=== PATIENT | female | born 1975 | race Caucasian/White ===

== ENCOUNTER 2016-05-12 15:48 | Inpatient (IN) | payer BC ==
[~2016-05-12] VITALS: Ht 170.2 cm; Wt 73.6 kg
--- NOTE | ~2016-05-12 | CON ---
PATIENT'S NAME: PANDA PATRICIA [facility] AGE: 40 Y [address] ROOM: [address] [place], [place] [address] LOCATION: G3 ADMIT DATE: 05/12/2016 Consultation DISCHARGE DATE: FAMILY PHYSICIAN: Neeraj Hart ATTENDING PHYSICIAN: LANRE BUSTAMANTE DATE OF CONSULTATION: 05/14/2016 REFERRING PHYSICIAN: RADHA SNYDER MD INITIAL PSYCHIATRIC EVALUATION/CONSULTATION DATA: The patient was seen today on a one-to-one. The case was discussed with the nurse for vital signs and collateral information. The patient is a 40-year- old female. The case later on was also discussed with the treating physician, Dr. Ulrich and with the nurse practitioner. DIAGNOSES AT THE TIME OF EVALUATION: Borderline personality disorder (severe), history of bipolar disorder, and chronic opioid use. RECOMMENDATION: The patient right now is denying any issues with abuse. Nevertheless, I concur with Dr. Ulrich the need for starting tapering her off obvious is evident. Nevertheless, again the patient is not suicidal or homicidal, not psychotic, and does not need a different level of psychiatric care. The patient should only continue with psychotherapy upon discharge. HISTORY: This lady ended up in the hospital recently with nausea and vomiting. Mother stated that the patient has been abusing opiates chronically that the patient denies. Nevertheless, symptomatology seems to confirm that she is in some kind of opiate withdrawal, and because of that, a psychiatric consultation was requested. So, I came to [facility], reviewed the electronic records and the paper records, talked to the nurse for collateral information and with the patient on a one-to-one. The patient quite regretfully is bluntly denying any kind of abuse. She said that she is bipolar. She has been to Dr. Carter in [place]. Nevertheless, upon checking, the patient has never met criteria for major depressive episodes or hypomanic episodes or manic episodes. She has a very strong instability, which may confirm the diagnosis and with that also problems with relationships, self- esteem, impulsivity, anger, and emptiness. The patient has never been psychotic, never manic or hypomanic. No issues with obsession and compulsion, eating disorder, post traumatization, or gambling. PATIENT'S NAME: PANDA PATRICIA [facility] AGE: 40 Y [address] ROOM: [address] [place], [place] [address] LOCATION: [facility] ADMIT DATE: 05/12/2016 Consultation DISCHARGE DATE: FAMILY PHYSICIAN: , New ATTENDING PHYSICIAN: LANRE BUSTAMANTE SUBSTANCE USE HISTORY: She is a smoker, but not a heavy drinker. PAST PSYCHIATRIC HISTORY: The patient has been hospitalized once only for psychiatric problems because of depression but not suicidality. MEDICAL HISTORY: Per Dr. Bustamante's H and P. PERSONAL HISTORY: She is adopted, living with her children; now in [place], [place]. HISTORY OF ABUSE: Denies having been abused physically, sexually, or psychologically. FAMILY HISTORY: Unknown. MENTAL STATUS EXAMINATION: lady, cooperative, good hygiene, good eye contact. No psychomotor agitation or retardation. Her speech is normal in volume, tone, and production. Mood is described as "worried about my health," assessed as labile. Affect is labile with appropriate thought content. Thought contents are relevant by the patient denying current suicidal or homicidal ideation, denying any auditory or visual hallucination. No delusional thoughts. Thought process is coherent, congruent. No loosening of association. Insight and judgment seem to be formally intact, tainted by [place] II. STRENGTH: Intelligence. BARRIERS: Coping skills, tolerance and dependence on opioids. ELIE CEDILLO MD HG/modl /[id number] d: 05/15/16 0853 t: 05/15/16 1041, CONSULTATION REPORT
--- NOTE | ~2016-05-12 | DS ---
PATIENT'S NAME: PANDA PATRICIA [facility] AGE: 40 Y [address] ROOM: [address] [place], [place] [address] LOCATION: [facility] ADMIT DATE: 05/12/2016 Discharge Summary DISCHARGE DATE: FAMILY PHYSICIAN: Neeraj Hart ATTENDING PHYSICIAN: Claude Harris The attending doctor for today is Dr. Vargas. CHIEF COMPLAINT: Abdominal pain, nausea, and vomiting. HOSPITAL COURSE: This patient was admitted on the , complaining of abdominal pain, nausea, and vomiting. This has been going on since May 10, 2016. Symptoms gotten worse since the , and the patient came to the hospital seeking medical help. The patient has a history of neck pain and upper and lower back pain. The patient was not satisfied with the pain management, and Pain Management, Dr. Stanford, consultation was placed. Upon discussions with the pain management doctor, he advised to withdraw/discontinue all the narcotic medications. The patient was not happy with this in the beginning and seems to me that she was okay today. Nausea and vomiting got controlled. GI consult was placed. The patient received upper GI endoscopy and lower GI endoscopy. The EGD showed mild gastritis, and biopsy was taken. The colonoscopy was normal apart from 2 small polyps which were removed. The patient was started on antibiotic on arrival, and recently GI consult, antibiotics will be stopped. Psychiatric consultation was placed. The doctor came to evaluate the patient, but the patient refused to get the evaluation. The patient seems very cooperative today, and she is not anxious. She does not look upset, and she is excited to go home. She is going to follow up with her family doctor next week. PHYSICAL EXAMINATION ON DISCHARGE: VITAL SIGNS: Temperature is 98.4, pulse is 99, respiratory rate of 14, blood pressure of 123/79, and oxygen saturation 100% on room air. GENERAL APPEARANCE: The patient is alert, awake, and oriented x3. RESPIRATORY: Clear to auscultation bilaterally. CARDIOVASCULAR: S1 plus S2 plus 0. GASTROINTESTINAL. Nontender and nondistended. Positive bowel sounds. NEUROLOGIC: Grossly normal. SKIN: No abnormality detected. LABORATORY DATA ON DISCHARGE: Chemistry: Sodium 140, potassium 3.4, chloride 106, bicarbonate 23, BUN 5, and creatinine 0.6. MEDICATIONS ON DISCHARGE: 1. Lamictal 200 mg p.o. daily. 2. Gabapentin 600 mg p.o. daily p.r.n. PATIENT'S NAME: PANDA PATRICIA [facility] AGE: 40 Y [address] ROOM: [address] [address] LOCATION: [facility] ADMIT DATE: 05/12/2016 Discharge Summary DISCHARGE DATE: FAMILY PHYSICIAN: Physician, New ATTENDING PHYSICIAN: Claude Harris CONDITION ON DISCHARGE: Stable. DISCHARGE DESTINATION: Home. ACTIVITY: Advance as tolerated. DIET: Regular diet. FOLLOWUP: 1. Please follow up with your primary care within one week. 2. Follow up with Pain Management within one week. RESTRICTIONS: There are no restrictions. MD ZAK GRIFFIN/modl /[id number] d: 05/16/16 1624 t: 06/29/16 0838, DISCHARGE SUMMARY
--- NOTE | ~2016-05-12 | HP ---
PATIENT'S NAME: PANDA PATRICIA [facility] AGE: 40 Y [address] ROOM: [address] [place], [place] [address] LOCATION: [facility] ADMIT DATE: 05/12/2016 History & Physical DISCHARGE DATE: FAMILY PHYSICIAN: ATTENDING PHYSICIAN: LANRE BUSTAMANTE DATE OF SERVICE: 05/12/2016 CHIEF COMPLAINT: Nausea and nonbloody vomiting and nonbloody diarrhea and diffuse abdominal pain for the last 2 days. HISTORY OF PRESENT ILLNESS: This is a 40-year-old female who states that last Wednesday on May 10, 2016, the patient started feeling this nausea and nonbloody vomiting and nonbloody diarrhea and diffuse abdominal pain, but the symptoms did get better yesterday May 11, 2016. Today on May 12, 2016, these symptoms came back again with nausea and nonbloody vomiting and nonbloody diarrhea. She states she has had roughly 20 episodes of nonbloody vomiting today, roughly 15 episodes of nonbloody diarrhea today associated with diffuse abdominal pain, and some chills today. She chronically suffers from posterior neck and upper back and lower back pain. She states she has some severe degenerative joint disease and is scheduled to have surgery in [place] in 2 to 3 months. She chronically takes a fentanyl patch 75 mcg one patch per day. Last dose was on Tuesday, May 10, 2016, and she also takes Percocet 10/325 mg 1 to 4 tablets a day, last dose was 2 days ago, also on Tuesday May 10, 2016. She stopped taking the p.o. Percocet 2 days ago and stopped using the fentanyl patch because she ran out of the fentanyl patch and she did not feel well because of the nausea and vomiting. She states that she has never felt like this before. She chronically used the fentanyl patch and Percocet for a long time, therefore, she is narcotic dependent. REVIEW OF SYSTEMS: As mentioned in history of present illness. All other systems reviewed and negative except those mentioned in history of present illness. PAST MEDICAL HISTORY: 1. Bipolar disorder. 2. Anxiety disorder. 3. Chronic posterior neck and upper and lower back pain secondary to degenerative joint disease. 4. Chronically narcotic dependent at home with fentanyl patch and also with the Percocet. The patient denies any other past medical history. PATIENT'S NAME: PANDA PATRICIA [facility] AGE: 40 Y [address] ROOM: [address] [place], [place] [address] LOCATION: [facility] ADMIT DATE: 05/12/2016 History & Physical DISCHARGE DATE: FAMILY PHYSICIAN: ATTENDING PHYSICIAN: LANRE BUSTAMANTE ALLERGIES: NO KNOWN DRUG ALLERGIES ACCORDING TO THE PATIENT. HOME MEDICATIONS: Currently is being reconciled with the patient's pharmacy. SOCIAL HISTORY: The patient is an active cigarette smoker about half pack per day for 20 years and she denies any illegal drugs or any alcohol use disorder or problem. She drinks alcohol socially. She denies any alcohol withdrawal or alcohol withdrawal seizure or delirium tremens in the past. FAMILY HISTORY: The patient is adopted, therefore, she has no idea about her biological parents past medical history. PAST SURGICAL HISTORY: Status post cholecystectomy and status post right foot surgery in the past. PHYSICAL EXAMINATION: VITAL SIGNS: At the time of my dictation, temperature 98.2, heart rate 71, respiration 14, blood pressure 142/73, saturation 99% on room air. Pain 4 to 6/10 diffusely in the abdomen. GENERAL APPEARANCE: The patient is alert and in discomfort and in moderate distress, moving around on the bed, complaining of diffuse abdominal pain and nausea. The patient does not look septic. HEENT: Pupils equally round and reactive to light. Extraocular muscles intact. There is no obvious finding of mydriasis. No horizontal and no vertical nystagmus. Anicteric sclerae. Nasal turbinates are normal bilaterally. Moist oral mucosa. No oral thrush. NECK: No JVD. No neck stiffness. No cervical lymphadenopathy. CARDIOVASCULAR: Regular rate and rhythm. Normal S1 and S2. No murmur, no rubs, no gallops. RESPIRATORY: Clear. Chest wall nontender to palpation. ABDOMEN: Soft, diffusely tender to palpation, worse in the right upper quadrant and left upper quadrant and epigastric area. No rebound tenderness. No abdominal rigidity. Bowel sounds are present. Could not appreciate any mass. No ascites. Nondistended. Soft. Bowel sounds present. EXTREMITIES: No edema in upper or lower extremities. MUSCULOSKELETAL: She has some midline tenderness to palpation in the lower back in the lumbar area which she states is chronic and has now worsened. Range of motion intact in all 4 extremities. SKIN: No ulcer, no rash, no cyanosis. NEUROLOGIC: Grossly nonfocal. No muscle weakness. No sensation loss. No PATIENT'S NAME: PANDA PATRICIA [facility] AGE: 40 Y [address] ROOM: [address] [address] LOCATION: [facility] ADMIT DATE: 05/12/2016 History & Physical DISCHARGE DATE: FAMILY PHYSICIAN: ATTENDING PHYSICIAN: LANRE BUSTAMANTE anesthesia. LABORATORY DATA: White blood cell 14.5, hemoglobin 11.6, hematocrit 33.8, MCV 86.2, platelet 431. Glucose 152, BUN 10, creatinine 0.9, sodium 143, potassium 3.1, chloride 108, CO2 of 27, calcium 8.5, total protein 6.8, albumin 3.7, AST 14, ALT 17, alkaline phosphatase 78, total bilirubin 0.3, anion gap 11.1, globulin 3.1. GFR more than 60. Amylase 103, lipase 70. Urinary test negative. IMAGING STUDIES: CT of abdomen and pelvis with contrast on admission showed segmental wall thickening and luminal narrowing at the colon involving predominantly the ascending colon, splenic flexure, and transverse colon. The appearance could reflect changes of colitis or infectious or inflammatory origin. No free air. No finding of bowel obstruction. No appendicitis. Surgically absent gallbladder. EKG on admission showed sinus rhythm, heart rate at 64 beats per minute with a first-degree AV block, [place] of 216 milliseconds, QRS of 102 millisecond, QTc 433 milliseconds. No acute ischemic findings. ASSESSMENT AND PLAN: 1. Intractable nausea and nonbloody vomiting and nonbloody diarrhea with diffuse abdominal pain likely secondary to infectious/ischemic/inflammatory colitis and possibly opioid withdrawal: For the colitis, I will treat her with iv ceftriaxone and iv flagyl, npo, iv fluids for hydration, and pain control with IV fentanyl p.r.n. and IV Dilaudid p.r.n. and GI consult in the morning. For the possible opiate withdrawal, she is already getting IV fentanyl p.r.n. and IV Dilaudid p.r.n. She does not want any fentanyl patch because they fall off very easily on her. Nausea control with IV Zofran p.r.n. Her diagnosis is probably secondary to infectious colitis due to the finding on the CAT scan as well as possible opioid withdrawal since her symptoms started 2 days ago when she suddenly stopped using the fentanyl patch and also with the Percocet. Further plan depends on clinical course. The left splenic flexure area is involved, so ischemic colitis would still be in the differential but typically it also has bloody diarrhea and some history of coronary artery disease. Inflammatory bowel disease such as UC or CD but location and distribution on her CAT scan is not the typical areas either. Will place GI consult in AM. 2. Regarding her hypokalemia: This is from the GI loss from the nausea, vomiting, and diarrhea. I will replace her with IV potassium given that she cannot take p.o. She will be getting IV fluids for hydration as well. 3. Regarding her anxiety disorder: I will give her some Ativan IV p.r.n. to control her anxiety. 4. Regarding her chronic upper and lower back pain and chronic neck pain from her degenerative joint disease: Pain control with IV fentanyl PATIENT'S NAME: PANDA PATRICIA [facility] AGE: 40 Y [address] ROOM: [place] [address] LOCATION: [facility] ADMIT DATE: 05/12/2016 History & Physical DISCHARGE DATE: FAMILY PHYSICIAN: ATTENDING PHYSICIAN: LANRE BUSTAMANTE p.r.n. and IV Dilaudid p.r.n. The patient will be having a surgery in [place] in 3 months according to the patient to fix her DJD. Currently, there is no finding to suggest spinal cord compression. Therefore, MRI of the spinal cord will not be performed at this time unless her clinical condition changes. 5. Deep vein thrombosis prophylaxis: She will be on subcu Lovenox. 6. Active cigarette user: She will be getting nicotine patch 21 g transdermal patch daily. 7. Further plan depends on clinical course. Time spent on the day of admission 40 minutes including chart review, interviewing and examining the patient, addressing all the questions and concerns the patient had, and going over the plan of care with the nurse, patient, and the patient's friend at the bedside. LANRE BUSTAMANTE MD CC/modl /[id number] D: [id number] T: [id number] HISTORY & PHYSICAL
--- NOTE | ~2016-05-12 | CON ---
PATIENT'S NAME: PANDA PATRICIA [facility] AGE: 40 Y [address] ROOM: [place] [address] LOCATION: G3N ADMIT DATE: 05/12/2016 Consultation DISCHARGE DATE: FAMILY PHYSICIAN: Neeraj Hart ATTENDING PHYSICIAN: LANRE BUSTAMANTE DATE OF CONSULTATION: 05/13/2016 REFERRING PHYSICIAN: RADHA SNYDER MD HOSPITAL CONSULTATION REFERRING PROVIDER: Lexie Ulrich MD REASON FOR CONSULTATION: Abdominal pain, nonbloody diarrhea, and emesis. HISTORY OF PRESENT ILLNESS: This is a 40-year-old female who states on 05/10/2016, she began feeling nauseated with nonbloody vomiting and diarrhea. At this time, she complained of diffuse abdominal pain though the symptoms did improve the following day. Her symptoms returned on May 12 on the day of admission with continued nausea, vomiting, and nonbloody diarrhea in upwards of 20 episodes. She does chronically suffer from posterior neck, upper back and lower back pain, and has currently been dependent on narcotics, specifically Percocet and fentanyl patch at home. The patient retreated to the emergency room and was evaluated at that time. A CT abdomen and pelvis was completed on 05/12/2016 that did show segmental wall thickening, luminal narrowing at the colon involving predominantly the ascending colon, splenic flexure, and transverse colon. Reflecting changes of colitis of infectious versus inflammatory in origin. The patient was admitted and placed on IV Flagyl as well as ceftriaxone. The patient denies any chest pain, chest pressure, shortness of breath, fever, chills, night sweats, or weight loss. She does state that her abdominal pain is diffusely throughout with more specific intensity in her lower abdomen. The patient denies any blood in her stool or hematemesis. PAST MEDICAL HISTORY: 1. Bipolar. 2. Anxiety. 3. Chronic posterior neck, upper and lower back pain secondary to degenerative joint disease, chronically narcotic dependent at home with fentanyl patch and Percocet. PAST SURGICAL HISTORY: PATIENT'S NAME: PANDA PATRICIA [facility] AGE: 40 Y [address] ROOM: [place] [address] LOCATION: N ADMIT DATE: 05/12/2016 Consultation DISCHARGE DATE: FAMILY PHYSICIAN: Physician New ATTENDING PHYSICIAN: LANRE BUSTAMANTE 1. Post cholecystectomy. 2. Right foot surgery in the past. SOCIAL HISTORY: The patient is an active cigarette smoker about a half pack per day. She denies any illicit drug use or alcohol use disorder. She does admit to drinking alcohol on a social basis. FAMILY HISTORY: The patient is adopted with no known biological medical history. ALLERGIES: NO KNOWN MEDICATION ALLERGIES. CURRENT MEDICATIONS: Please refer to the medication administration record. REVIEW OF SYSTEMS: A 10-point review of systems was completed. All were negative except for those identified in the history of present illness. PHYSICAL EXAMINATION: GENERAL: A pleasant, 40-year-old female, who appears to be in mild acute distress. VITAL SIGNS: Temperature 98.6, pulse is 51, respirations of 18, blood pressure 114/59, and oxygen saturations 100% on room air. SKIN: [place], warm, and dry. No jaundice. HEENT: Head is normocephalic and atraumatic. Pupils are equal, round, and reactive to light. Sclerae are clear. Nonicteric. Oral mucosa is pink and moist. No thyromegaly. NECK: Soft and supple. CARDIOVASCULAR: Regular. Normal S1 and S2. RESPIRATORY: Respirations even and unlabored. LUNGS: Clear to auscultation. ABDOMEN: Soft, round, and tender throughout with light palpation. Bowel sounds positive x4 quadrants. MUSCULOSKELETAL: No muscle weakness or atrophy. EXTREMITIES: No clubbing, cyanosis, or edema. NEUROLOGIC: Grossly nonfocal. LABORATORY DATA AND IMAGING STUDIES: Labs and Diagnostics: White blood cell count of 14.5, hemoglobin 10.1, hematocrit of 30.0, and platelets of 355,000. Chemistry panel includes a glucose of 101, BUN of 9, creatinine 0.8, sodium 146, potassium of 3.7, chloride of 112, and CO2 of 25. LFTs on admission were all within normal PATIENT'S NAME: PANDA PATRICIA [facility] AGE: 40 Y [address] ROOM: [address] [address] LOCATION: [facility] ADMIT DATE: 05/12/2016 Consultation DISCHARGE DATE: FAMILY PHYSICIAN: Neeraj Hart ATTENDING PHYSICIAN: LANRE BUSTAMANTE limits. ESR is 8. A CT abdomen and pelvis was also completed, showing segmental wall thickening, luminal narrowing of the colon involving predominantly the ascending colon at the splenic flexure, and transverse colon, reflecting changes of colitis of infectious versus inflammatory in origin. Surgically absent gallbladder. No free air with no findings of bowel obstruction or appendicitis. ASSESSMENT AND PLAN: Again this is a pleasant, 40-year-old female with acute colitis. The patient on examination is quite tender throughout her abdomen. The patient will require an upper endoscopy and colonoscopy for further evaluation, once the acute pain has resolved. Recommendations to continue antibiotics as well as a PPI coverage until further resolution of the patient's abdominal pain. The patient will be placed on a clear liquid diet as tolerated with monitoring of labs including a CBC, CRP, and lipase. Further recommendations to be given over the patient's course of her hospitalization. Thank you for this consult and allowing us to participate in the care of this patient. We will continue to monitor, evaluate, and treat as appropriate. ARVIN FAN APRN FOR RADHA SNYDER MD MMF/modl /[id number] d: 05/14/16 1118 t: 05/20/16 0952, CONSULTATION REPORT
--- NOTE | ~2016-05-12 | DS ---
PATIENT'S NAME: PANDA PATRICIA [facility] AGE: 40 Y [address] ROOM: [address] [place], [place] [address] LOCATION: [facility] ADMIT DATE: 05/12/2016 Discharge Summary DISCHARGE DATE: FAMILY PHYSICIAN: Neeraj Hart ATTENDING PHYSICIAN: Claude Harris The attending doctor for today is Dr. Vargas. CHIEF COMPLAINT: Abdominal pain, nausea, and vomiting. HOSPITAL COURSE: This patient was admitted on the , complaining of abdominal pain, nausea, and vomiting. This has been going on since May 10, 2016. Symptoms gotten worse since the , and the patient came to the hospital seeking medical help. The patient has a history of neck pain and upper and lower back pain. The patient was not satisfied with the pain management, and Pain Management, Dr. Stanford, consultation was placed. Upon discussions with the pain management doctor, he advised to withdraw/discontinue all the narcotic medications. The patient was not happy with this in the beginning and seems to me that she was okay today. Nausea and vomiting got controlled. GI consult was placed. The patient received upper GI endoscopy and lower GI endoscopy. The EGD showed mild gastritis, and biopsy was taken. The colonoscopy was normal apart from 2 small polyps which were removed. The patient was started on antibiotic on arrival, and recently GI consult, antibiotics will be stopped. Psychiatric consultation was placed. The doctor came to evaluate the patient, but the patient refused to get the evaluation. The patient seems very cooperative today, and she is not anxious. She does not look upset, and she is excited to go home. She is going to follow up with her family doctor next week. PHYSICAL EXAMINATION ON DISCHARGE: VITAL SIGNS: Temperature is 98.4, pulse is 99, respiratory rate of 14, blood pressure of 123/79, and oxygen saturation 100% on room air. GENERAL APPEARANCE: The patient is alert, awake, and oriented x3. RESPIRATORY: Clear to auscultation bilaterally. CARDIOVASCULAR: S1 plus S2 plus 0. GASTROINTESTINAL. Nontender and nondistended. Positive bowel sounds. NEUROLOGIC: Grossly normal. SKIN: No abnormality detected. LABORATORY DATA ON DISCHARGE: Chemistry: Sodium 140, potassium 3.4, chloride 106, bicarbonate 23, BUN 5, and creatinine 0.6. MEDICATIONS ON DISCHARGE: 1. Lamictal 200 mg p.o. daily. 2. Gabapentin 600 mg p.o. daily p.r.n. PATIENT'S NAME: PANDA PATRICIA [facility] AGE: 40 Y [address] ROOM: [address] [address] LOCATION: [facility] ADMIT DATE: 05/12/2016 Discharge Summary DISCHARGE DATE: FAMILY PHYSICIAN: Physician, New ATTENDING PHYSICIAN: Claude Harris CONDITION ON DISCHARGE: Stable. DISCHARGE DESTINATION: Home. ACTIVITY: Advance as tolerated. DIET: Regular diet. FOLLOWUP: 1. Please follow up with your primary care within one week. 2. Follow up with Pain Management within one week. RESTRICTIONS: There are no restrictions. MD ZAK GRIFFIN/modl /[id number] d: t: 05/16/16 1631, DISCHARGE SUMMARY
--- NOTE | ~2016-05-12 | ER ---
PATIENT'S NAME: PANDA PATRICIA [facility] AGE: 40 Y [address] ROOM: [place] [address] LOCATION: [facility] ADMIT DATE: 05/12/2016 ER/Outpatient Report DISCHARGE DATE: FAMILY PHYSICIAN: ATTENDING PHYSICIAN: LANRE BUSTAMANTE Time of Arrival: 1548 hours. Time of Evaluation: 1548 hours. CHIEF COMPLAINT: Nausea and vomiting. HISTORY OF PRESENT ILLNESS: This is a 40-year-old female, who presents to the ER via [facility], who states that she is sick from eating baloney. The patient states that she ate this baloney 2 nights ago and had an episode of vomiting and diarrhea from it. She states that she did not associate it with the baloney because she thought she has just had got gastrointestinal flu. The patient states that she did eat the baloney again at 11 o'clock this morning and approximately an hour later started vomiting again. The patient states she has not been running any fevers. She states she has generalized pain throughout her abdomen and has burning up into her chest. She states that she has had no recent antibiotic therapy. No recent travel outside of the [facility]. She states that she is here from [facility]. Upon her arrival, she did receive 4 mg of Zofran, and they started some IV fluids on her as well. ALLERGIES: NO KNOWN ALLERGIES. MEDICATIONS: Please see medication list in nurse's notes. PAST MEDICAL HISTORY: Bipolar, anxiety, fibromyalgia, chronic back pain. PAST SURGICAL HISTORY: Cholecystectomy, surgery on her right foot. SOCIAL HISTORY: Smokes half pack of cigarettes a day for the last 20 years. Drinks alcohol rarely. Denies any drug use. REVIEW OF SYSTEMS: A 10-point review of system was completed and was negative with the exception PATIENT'S NAME: PANDA PATRICIA [facility] AGE: 40 Y [address] ROOM: [place] [address] LOCATION: [facility] ADMIT DATE: 05/12/2016 ER/Outpatient Report DISCHARGE DATE: FAMILY PHYSICIAN: ATTENDING PHYSICIAN: LANRE BUSTAMANTE of those discussed in the HPI. PHYSICAL EXAMINATION: VITAL SIGNS: Height 5 feet 7 inches stated, weight 72.7 kg taken, blood pressure is 157/84, pulse 72, respirations 20, temperature 96.8 degrees tympanically, saturations 100% on room air. Crook Coma Score is 15. GENERAL: Alert, very anxious, 40-year-old, in moderate distress. The patient is screaming out in pain and dry heaving. HEENT: Head: Normocephalic. She does display moist mucous membranes. Eyes: Pupils are equal and reactive to light. NECK: Supple. No lymphadenopathy. LUNGS: Clear to auscultation bilaterally. No wheezes or crackles. Normal respiratory effort. HEART: Regular rate and rhythm. No lifts, thrills, or murmurs. ABDOMEN: She has generalized tenderness in all 4 quadrants. She has good bowel sounds throughout. EXTREMITIES: No clubbing or cyanosis. She does have full range of motion of all limbs. SKIN: Warm, dry, and intact. NEURO: Cranial nerves 2 through 12 grossly intact. Gait was not observed. LABORATORY DATA AND X-RAYS: CBC: White count is 14.5, hemoglobin is 11.6, platelets 431, ANC is 12.4. CMS: Potassium 3.1, glucose is 152, otherwise unremarkable. Amylase is 103, lipase is 70. H-pylori was negative. HCG was less than 1.0. EKG shows sinus rhythm. Does have some artifact on that EKG. CT scan was done with IV contrast. This shows some wall thickening of her colon in the ascending and transverse section of her colon, questioning infectious colitis. No obstruction was seen. IMPRESSION: 1. Nausea and vomiting. 2. Abdominal discomfort with CT findings of colitis. 3. Possible narcotic withdrawal. ASSESSMENT AND PLAN: The patient did have an IV established with IV fluids going when she arrived. We did repeat a second liter of fluids while she was here. After she arrived, she states that Zofran was not helping her. Therefore, we gave 50 mg of Phenergan IM and 1 mg of Ativan to help calm her down. She states that this is not helping her, and she states that her pain is worse, so we gave her fentanyl 25 mcg IV, and then a few minutes later gave her another dose of Zofran 4 mg IV. The patient continued to be in significant discomfort. I thought maybe I could relax her by using some Benadryl 50 mg IV. The patient still continues that nothing is helping her. So, I did have Dr. Jennifer go and PATIENT'S NAME: PANDA PATRICIA [facility] AGE: 40 Y [address] ROOM: [address] [place], [place] [address] LOCATION: [facility] ADMIT DATE: 05/12/2016 ER/Outpatient Report DISCHARGE DATE: FAMILY PHYSICIAN: ATTENDING PHYSICIAN: LANRE BUSTAMANTE evaluate her. He did order Dilaudid 1 mg IV, which did slightly improve her pain. We were able to get a CT scan at that time. While she has gone, her mother did arrive room in the emergency room and tells us out of the presence of the patient that her daughter has a significant history of narcotic abuse in the past. She has had both of her children taken away from her due to this history. She states that her supplier of Percocet has not been around, and so she feels like she is withdrawing from narcotic therapy. After the patient arrived back in the room, I did ask the patient if she is taking any street drugs or if there is any possibility of her withdrawing from narcotics, and the patient denies this. The patient's mother states that she did speak with Dr. Shivani Gregory in regard to the patient, therefore, I gave Dr. Medina a call, and he will be admitting the patient for pain control and workup of her colitis. The patient did not have any further dry heaving when she was having sensation of acid reflux. I did give her GI cocktail p.o., which did improve her pain. We did repeat her Zofran as well. The patient still is wanting something more for her pain, but I did not feel comfortable giving her any more narcotic therapy here with the amount of medications that we had already given her. The patient and the patient's mother understand, and agree with care. SUNIL ANDERSEN PA-C FOR MD IZABELLA MILAN/wagner /[id number] I have personally evaluated this patient. I discussed the patient's care with the PA and agree with the assessment and plan as documented above. Niraj Rodriguez MD d: 05/13/16 0054 t: 05/26/16 0816, OUTPATIENT REPORT
[2016-05-12 16:14] LABS: BASOPHIL % 0.3 %; HEMATOCRIT 33.8 % (33.0-46.0); HEMOGLOBIN 11.6 g/dL (10.0-15.0); IMMATURE GRANULOCYTE # 0.1 K/uL (0.0-0.3); IMMATURE GRANULOCYTE % 0.6 %; LYMPHOCYTE # 1.5 K/uL (0.8-4.0); LYMPHOCYTE % 10.5 %; MCH 29.6 pg (27.0-34.0); MCHC 34.3 gm/dL (32.0-36.5); MCV 86.2 fl (83.0-98.0); MONOCYTE # 0.4 K/uL (0.0-1.0); MPV 9.2 fl (9.4-12.4); NEUTROPHIL # (ANC) 12.4 K/uL (1.8-7.8); NEUTROPHIL % 85.6 %; NRBC % 0 /100WBC (0-0.00); PLATELET COUNT 431 K/uL (150-450); RBC 3.92 M/uL (3.50-5.50); RDW-CV 13.2 % (11.9-14.6); WBC 14.5 K/uL (4.0-11.0)
[2016-05-12 16:32] LABS: ALBUMIN 3.7 gm/dL (3.5-5.0); ALK PHOS 78 IU/L (33-138); ALT 17 IU/L (12-78); ANION GAP 11.1 (10.0-19.0); AST 14 IU/L (10-40); BLOOD UREA NITROGEN 10 mg/dL (6-24); CALCIUM 8.5 mg/dL (8.5-10.5); CHLORIDE 108 mMol/L (96-110); CO2 27 mMol/L (22-32); CREATININE 0.9 mg/dL (0.5-1.1); ESTIMATED GFR (MDRD EQUATION) > 60; POTASSIUM 3.1 mMol/L (3.7-5.1); SODIUM 143 mMol/L (135-145); TOTAL BILIRUBIN 0.3 mg/dL (0.0-1.5); TOTAL PROTEIN 6.8 g/dL (6.0-8.4)
[2016-05-12] MEDS ORDERED: ADVIL200 MG PO (21:15)
[2016-05-12] MEDS ORDERED: KLONOPIN0.5 MG PO (21:17)
[2016-05-12] MEDS ORDERED: LAMICTAL200 MG PO (21:18)
[2016-05-12] MEDS ORDERED: NEURONTIN600 MG PO (21:19)
[2016-05-12] MEDS ORDERED: DURAGESIC 75MC75 MCG EXT (21:21)
[2016-05-12] MEDS ORDERED: PERCOCET 10-321 EACH PO (21:22)
[2016-05-13 05:35] LABS: BASOPHIL % 0.3 %; HEMOGLOBIN 10.1 g/dL (10.0-15.0); IMMATURE GRANULOCYTE # 0.1 K/uL (0.0-0.3); IMMATURE GRANULOCYTE % 0.4 %; LYMPHOCYTE # 3.4 K/uL (0.8-4.0); LYMPHOCYTE % 23.4 %; MCH 29.3 pg (27.0-34.0); MCHC 33.7 gm/dL (32.0-36.5); MONOCYTE % 7.1 %; MPV 9.4 fl (9.4-12.4); NEUTROPHIL % 68.8 %; NRBC % 0 /100WBC (0-0.00); PLATELET COUNT 355 K/uL (150-450); RBC 3.45 M/uL (3.50-5.50); RDW-CV 13.4 % (11.9-14.6); WBC 14.5 K/uL (4.0-11.0)
[2016-05-13 05:54] LABS: ALBUMIN 3.3 gm/dL (3.5-5.0); ALK PHOS 70 IU/L (33-138); ALT 16 IU/L (12-78); AST 18 IU/L (10-40); TOTAL PROTEIN 6.3 g/dL (6.0-8.4)
[2016-05-13 05:55] LABS: TOTAL BILIRUBIN 0.4 mg/dL (0.0-1.5)
[2016-05-13 05:58] LABS: ANION GAP 12.7 (10.0-19.0); BLOOD UREA NITROGEN 9 mg/dL (6-24); CALCIUM 8.1 mg/dL (8.5-10.5); CHLORIDE 112 mMol/L (96-110); CO2 25 mMol/L (22-32); CREATININE 0.8 mg/dL (0.5-1.1); ESTIMATED GFR (MDRD EQUATION) > 60; PHOSPHORUS 3.5 mg/dL (2.5-4.9); POTASSIUM 3.7 mMol/L (3.7-5.1)
[2016-05-13 05:59] LABS: SODIUM 146 mMol/L (135-145)
[2016-05-13 07:23] LABS: BILIRUBIN URINE NEGATIVE (NEGATIVE); BLOOD URINE 50 /UL (NEGATIVE); GLUCOSE URINE NEGATIVE (NEGATIVE); KETONE URINE 5 mg/dL (NEGATIVE); LEUKOCYTES URINE 25 /UL (NEGATIVE); NITRITE URINE NEGATIVE (NEGATIVE); PROTEIN URINE 30 mg/dL (NEGATIVE); SPEC GRAVITY URINE 1.015 (1.003-1.035); UROBILINOGEN URINE 1 mg/dL (NORMAL)
[2016-05-13 07:24] LABS: COLOR URINE YELLOW (YELLOW); TURBIDITY URINE CLEAR (CLEAR)
[2016-05-13 07:49] LABS: BARBITURATE NEGATIVE (NEGATIVE); COCAINE NEGATIVE (NEGATIVE); OPIATES POSITIVE (NEGATIVE)
[2016-05-13 07:50] LABS: AMPHETAMINE NEGATIVE (NEGATIVE)
[2016-05-13 08:04] LABS: BACTERIA URINE FEW (NEGATIVE); MUCUS URINE 2+ (NEGATIVE)
[2016-05-14 05:40] LABS: BASOPHIL # 0.1 K/uL (0.0-0.2); BASOPHIL % 0.5 %; EOSINOPHIL % 0.1 %; HEMATOCRIT 32.1 % (33.0-46.0); IMMATURE GRANULOCYTE % 0.3 %; LYMPHOCYTE # 1.4 K/uL (0.8-4.0); LYMPHOCYTE % 12.2 %; MCH 29.6 pg (27.0-34.0); MCHC 34.3 gm/dL (32.0-36.5); MCV 86.5 fl (83.0-98.0); MONOCYTE # 0.6 K/uL (0.0-1.0); MONOCYTE % 5.4 %; MPV 9.7 fl (9.4-12.4); NEUTROPHIL # (ANC) 9.4 K/uL (1.8-7.8); NEUTROPHIL % 81.5 %; NRBC % 0 /100WBC (0-0.00); PLATELET COUNT 360 K/uL (150-450); RBC 3.71 M/uL (3.50-5.50); RDW-CV 13.3 % (11.9-14.6); WBC 11.6 K/uL (4.0-11.0)
[2016-05-14 05:50] LABS: ANION GAP 12.9 (10.0-19.0); BLOOD UREA NITROGEN 6 mg/dL (6-24); CALCIUM 8.4 mg/dL (8.5-10.5); CHLORIDE 106 mMol/L (96-110); CO2 25 mMol/L (22-32); CREATININE 0.7 mg/dL (0.5-1.1); ESTIMATED GFR (MDRD EQUATION) > 60; MAGNESIUM 1.7 mg/dL (1.3-2.6); POTASSIUM 2.9 mMol/L (3.7-5.1); SODIUM 141 mMol/L (135-145)
[2016-05-15 06:09] LABS: BASOPHIL % 0.2 %; HEMATOCRIT 36.4 % (33.0-46.0); HEMOGLOBIN 12.9 g/dL (10.0-15.0); IMMATURE GRANULOCYTE % 0.4 %; LYMPHOCYTE # 1.8 K/uL (0.8-4.0); MCH 29.7 pg (27.0-34.0); MCHC 35.4 gm/dL (32.0-36.5); MCV 83.7 fl (83.0-98.0); MONOCYTE % 8.8 %; MPV 9.6 fl (9.4-12.4); NEUTROPHIL # (ANC) 8.4 K/uL (1.8-7.8); NEUTROPHIL % 74.6 %; NRBC % 0 /100WBC (0-0.00); PLATELET COUNT 363 K/uL (150-450); RBC 4.35 M/uL (3.50-5.50); RDW-CV 12.8 % (11.9-14.6); WBC 11.3 K/uL (4.0-11.0)
[2016-05-15 06:33] LABS: ALBUMIN 3.5 gm/dL (3.5-5.0); ALK PHOS 82 IU/L (33-138); ALT 86 IU/L (12-78); AST 99 IU/L (10-40); BLOOD UREA NITROGEN 3 mg/dL (6-24); CHLORIDE 103 mMol/L (96-110); CO2 24 mMol/L (22-32); CREATININE 0.7 mg/dL (0.5-1.1); ESTIMATED GFR (MDRD EQUATION) > 60; PHOSPHORUS 2.7 mg/dL (2.5-4.9); SODIUM 139 mMol/L (135-145); TOTAL PROTEIN 6.7 g/dL (6.0-8.4)
[2016-05-15 06:34] LABS: TOTAL BILIRUBIN 0.6 mg/dL (0.0-1.5)
[2016-05-16 07:52] LABS: ANION GAP 14.4 (10.0-19.0); CHLORIDE 106 mMol/L (96-110); CO2 23 mMol/L (22-32); CREATININE 0.6 mg/dL (0.5-1.1); ESTIMATED GFR (MDRD EQUATION) > 60; SODIUM 140 mMol/L (135-145)
[2016-05-16 07:53] LABS: BLOOD UREA NITROGEN 5 mg/dL (6-24); POTASSIUM 3.4 mMol/L (3.7-5.1)
== END 2016-05-16 17:00 | disposition disaster alternative care site (69) | DRG 392 ==
LOC: GMED 15:48 → G3N 19:29
PROVIDERS: Internal Medicine; Internal Medicine Gastroenterology; Physician Assistant; Physician Assistant Medical; ADMIT Internal Medicine
DX: A09 Infectious gastroenteritis and colitis, unspecified (principal); F11.20 Opioid dependence, uncomplicated; F19.939 Other psychoactive substance use, unspecified with withdrawal, unspecified; E87.6 Hypokalemia; F31.9 Bipolar disorder, unspecified; F41.9 Anxiety disorder, unspecified; G89.29 Other chronic pain; M54.5 Low back pain; F17.200 Nicotine dependence, unspecified, uncomplicated; D64.9 Anemia, unspecified
CPT/HCPCS: C9113; J0696; J1170; J1200; J1650; J2060; J2405; J2550; J3010; J3475; J3480; J7030; J7040; J7050; J7120; Q9967

== ENCOUNTER → 2016-05-12 | Outpatient (CLI) | payer BC ==
[~2016-05-12] MED LIST: ADVIL200 MG PO; DURAGESIC 75MC75 MCG EXT; KLONOPIN0.5 MG PO; LAMICTAL200 MG PO; NEURONTIN600 MG PO; PERCOCET 10-321 EACH PO
== END | disposition disaster alternative care site (69) ==
LOC: GAMB 15:30
DX: T50.905A Adverse effect of unspecified drugs, medicaments and biological substances, initial encounter (principal); R10.9 Unspecified abdominal pain; R11.2 Nausea with vomiting, unspecified
CPT/HCPCS: A0425; A0427; J2405; J7030